=== PATIENT | male | born 1965 | race Asian ===

== ENCOUNTER 2017-10-26 03:31 | Emergency (ER) | payer MEDICAID ==
[~2017-10-26] VITALS: Ht 170.2 cm; Wt 63.5 kg
--- NOTE | 2017-10-26 03:34 | NUR ---
Patient to ER bed 6 to gown for evaluation. Side rails up. Report given to Noah MARIE.
[2017-10-26 03:38] VITALS: BP_SYST 155
--- NOTE | 2017-10-26 03:44 | NUR ---
PT SEEN IN BED 6, COMPLAINS OF LOCALIZED LEFT FOOT PAIN. 09/21, CLAIMS PAIN MAKES WALKING DIFFICULT, TENDER TO THE TOUCH. AREA OF REDNESS ON DORSAL FOOT JUST BEHIND TOES. DOES NOT FEEL HOT TO THE TOUCH.
--- NOTE | 2017-10-26 03:57 | NUR ---
RAJ MIGUEL at bedside examining patient.
[2017-10-26] MEDS ORDERED: IBUPROFEN 800 MG TABLET PO ONE (04:00)
[2017-10-26 04:14] VITALS: BP_SYST 155
--- NOTE | 2017-10-26 04:14 | NUR ---
Patient given written and verbal discharge instructions and verbalizes understanding. ER MD DR. MIGUEL discussed with patient the results and treatment provided. Patient in stable condition. ID arm band removed. Rx of NAPROXEN, BACTRIM DS given. Patient educated on pain management and to follow up with PMD. Pain Scale 4/10. Opportunity for questions provided and answered. Medication side effect fact sheet provided.
[2017-10-26] MEDS ORDERED: SULFAMETHOXAZOLE/TRIMETHOPR DS 1 TABLET PO ONE (04:15)
== END 2017-10-26 04:14 | disposition home or self-care (01) ==
LOC: SED 03:31
DX: L03.116 Cellulitis of left lower limb (principal)
CPT/HCPCS: 99284

== ENCOUNTER 2017-12-09 19:15 | Emergency (ER) | payer MEDICAID ==
[~2017-12-09] VITALS: Ht 167.6 cm; Wt 63.5 kg
[2017-12-09 19:25] VITALS: BP_SYST 135
[2017-12-09] MEDS ORDERED: ONDANSETRON HCL 4 MG/2 ML VIAL IVP ONE (20:00)
[2017-12-09] MEDS ORDERED: NACL 0.9% 1,000 ML IV ONE (20:00)
[2017-12-09 20:36] LABS: BASOPHILS % (AUTO) 0.2 % (0.0-2.0); EOSINOPHILS % (AUTO) 0.1 % (0.0-4.0); HEMOGLOBIN 17.2 g/dL (14.0-18.0); LYMPHOCYTES # (AUTO) 0.3 K/uL (1.0-5.5); LYMPHOCYTES % (AUTO) 2.6 % (20.5-51.5); MEAN CORPUSCULAR HEMOGLOBIN 31 pg (27-31); MEAN CORPUSCULAR HGB CONC 34 % (32-36); MEAN CORPUSCULAR VOLUME 92 fL (79.0-98.0); MONOCYTES # (AUTO) 0.7 K/uL (0.0-1.0); NEUTROPHILS # (AUTO) 12.3 K/uL (1.8-7.7); NEUTROPHILS % (AUTO) 92.1 % (40.0-70.0); PLATELET COUNT (AUTO) 228 K/uL (130-430); RED BLOOD CELL COUNT(AUTO) 5.56 MIL/uL (4.2-6.2); RED CELL DISTRIBUTION WIDTH 11.7 % (9.0-15.0); WHITE BLOOD COUNT (AUTO) 13.3 K/uL (4.8-10.8)
[2017-12-09 20:52] LABS: CALCIUM 10.5 mg/dL (8.4-11.0); CREATININE 1.09 mg/dL (0.55-1.30); POTASSIUM 3.6 mmol/L (3.5-5.1)
[2017-12-09 20:57] LABS: TOTAL BILIRUBIN 1.1 mg/dL (0.0-1.0)
[2017-12-09 21:53] VITALS: BP_SYST 127
== END 2017-12-09 21:53 | disposition home or self-care (01) ==
LOC: SED 19:15
DX: T62.8X1A Toxic effect of other specified noxious substances eaten as food, accidental (unintentional), initial encounter (principal); R11.2 Nausea with vomiting, unspecified; R19.7 Diarrhea, unspecified; Y92.89 Other specified places as the place of occurrence of the external cause
CPT/HCPCS: 36415; 80053; 85025; 96361; 96374; 99284; J2405; J7030

== ENCOUNTER 2017-12-11 21:48 | Emergency (ER) | payer MEDICAID ==
[~2017-12-11] VITALS: Ht 167.6 cm; Wt 63.5 kg
[2017-12-11 21:59] VITALS: BP_SYST 144
[2017-12-11] MEDS ORDERED: CEPHALEXIN 500 MG CAPSULE PO ONE (22:45)
[2017-12-11 23:08] VITALS: BP_SYST 133
== END 2017-12-11 23:07 | disposition home or self-care (01) ==
LOC: SED 21:48
DX: L03.116 Cellulitis of left lower limb (principal); R03.0 Elevated blood-pressure reading, without diagnosis of hypertension
CPT/HCPCS: 99283

== ENCOUNTER 2018-03-15 02:30 | Emergency (ER) | payer MEDICAID ==
[~2018-03-15] VITALS: Ht 170.2 cm; Wt 70.3 kg
[2018-03-15 02:45] VITALS: BP_SYST 138
--- NOTE | 2018-03-15 02:45 | NUR ---
Pt placed to ER bedj 07. Pt c/o cough, congestion, runny nose, sore throat, fever and chills x 5 days.
--- NOTE | 2018-03-15 03:10 | NUR ---
Dr. Barclay at bedside.
[2018-03-15 03:20] VITALS: BP_SYST 128
--- NOTE | 2018-03-15 03:20 | NUR ---
Patient given written and verbal discharge instructions and verbalizes understanding. ER MD discussed with patient the results and treatment provided. Patient in stable condition. ID arm band removed. Rx of Prednisone, Motrin, Azithromycin given. Patient educated on pain management and to follow up with PMD. Pain Scale 3/10. Opportunity for questions provided and answered. Medication side effect fact sheet provided.
== END 2018-03-15 03:20 | disposition home or self-care (01) ==
LOC: SED 02:30
DX: J02.9 Acute pharyngitis, unspecified (principal); R05 Cough; R03.0 Elevated blood-pressure reading, without diagnosis of hypertension
CPT/HCPCS: 99283

== ENCOUNTER 2018-03-25 22:12 | Emergency (ER) | payer MEDICAID ==
[~2018-03-25] VITALS: Ht 170.2 cm; Wt 68.0 kg
[2018-03-25 22:19] VITALS: BP_SYST 144
--- NOTE | 2018-03-25 22:22 | NUR ---
Patient triaged and placed in waiting room. VSS and patient appears in no acute distress at this time. Accompanied by SELF, awaiting available bed, and MD notified of need for MSE.
--- NOTE | 2018-03-26 00:53 | NUR ---
Pt c/o cough, runny nose, itchy throat x 5 days. One episode of diarrhea yesterday. Denies N/V, no fever or chills.
--- NOTE | 2018-03-26 00:53 | NUR ---
Patient to ER bed 3 to gown for evaluation. Side rails up. Report given to CYNTHIA Serna.
--- NOTE | 2018-03-26 01:12 | NUR ---
Speciment collected from Left nares for flu.
--- NOTE | 2018-03-26 01:27 | NUR ---
ER Dr. Sheffield at bedside examining patient.
[2018-03-26] MEDS ORDERED: AZITHROMYCIN 250 MG TABLET PO ONE (02:15)
[2018-03-26 02:20] VITALS: BP_SYST 135
--- NOTE | 2018-03-26 02:20 | NUR ---
Patient given written and verbal discharge instructions and verbalizes understanding. ER MD discussed with patient the results and treatment provided. Patient in stable condition. ID arm band removed. Rx of Zithromax given. Patient educated on pain management and to follow up with PMD. Pain Scale 0/10. Opportunity for questions provided and answered. Medication side effect fact sheet provided.
== END 2018-03-26 02:20 | disposition home or self-care (01) ==
LOC: SED 22:12
DX: J20.9 Acute bronchitis, unspecified (principal); R03.0 Elevated blood-pressure reading, without diagnosis of hypertension
CPT/HCPCS: 36415; 71045; 86710; 99284; Q0144

== ENCOUNTER 2019-11-09 00:10 | Emergency (ER) | payer MEDICAID ==
[~2019-11-09] VITALS: Ht 167.6 cm; Wt 68.0 kg
[2019-11-09 00:15] VITALS: BP_SYST 129
[2019-11-09] MEDS ORDERED: DIPH-TET-PERTUS Vaccine 0.5 ML VIAL (ADACEL) I.M. ONE (00:45)
[2019-11-09] MEDS ORDERED: SULFAMETHOXAZOLE/TRIMETHOPR DS 1 TABLET PO ONE (00:45)
[2019-11-09] MEDS ORDERED: BACITRACIN 1 GM OINT TP ONE ×2 (01:00→01:14)
[2019-11-09 01:16] VITALS: BP_SYST 123
== END 2019-11-09 01:15 | disposition home or self-care (01) ==
LOC: SED 00:10
DX: S81.812D Laceration without foreign body, left lower leg, subsequent encounter (principal); L08.9 Local infection of the skin and subcutaneous tissue, unspecified; W45.8XXD Other foreign body or object entering through skin, subsequent encounter
CPT/HCPCS: 90715; 99283

== ENCOUNTER 2020-08-04 04:12 | Emergency (ER) | payer MEDICAID, SELFPAY ==
[~2020-08-04] VITALS: Ht 167.6 cm; Wt 68.0 kg
[2020-08-04 04:12] VITALS: BP_SYST 152
[2020-08-04 05:43] LABS: BILIRUBIN,URINE NEGATIVE (NEGATIVE); CLARITY/URINE CLEAR (CLEAR); COLOR,URINE YELLOW (YELLOW); GLUCOSE,URINE NEGATIVE (NEGATIVE); KETONES,URINE NEGATIVE (NEGATIVE); LEUKOCYTE ESTERASE ,URINE NEGATIVE (NEGATIVE); NITRITE, URINE NEGATIVE (NEGATIVE); PROTEIN URINE NEGATIVE (NEGATIVE); UROBILINOGEN,URINE 0.2 (0.2-1.0)
[2020-08-04 05:45] LABS: BLOOD, URINE TRACE (NEGATIVE)
[2020-08-04 05:46] LABS: BACTERIA,URINE RARE /HPF (None Seen); RBC,URINE 0-3 /HPF (0-3); WBC,URINE 0-3 /HPF (0-3)
[2020-08-04 06:25] LABS: BASOPHILS # (AUTO) 0.1 K/uL (0.0-0.2); BASOPHILS % (AUTO) 0.9 % (0.0-2.0); EOSINOPHILS % (AUTO) 0.3 % (0.0-4.0); HEMOGLOBIN 15.3 g/dL (14.0-18.0); LYMPHOCYTES # (AUTO) 0.4 K/uL (1.0-5.5); LYMPHOCYTES % (AUTO) 6.1 % (20.5-51.5); MEAN CORPUSCULAR HEMOGLOBIN 32 pg (27-31); MEAN CORPUSCULAR HGB CONC 35 % (32-36); MEAN CORPUSCULAR VOLUME 93 fL (79.0-98.0); MONOCYTES # (AUTO) 0.4 K/uL (0.0-1.0); MONOCYTES % (AUTO) 6.4 % (1.7-9.3); NEUTROPHILS # (AUTO) 5.7 K/uL (1.8-7.7); NEUTROPHILS % (AUTO) 86.3 % (40.0-70.0); PLATELET COUNT (AUTO) 189 K/uL (130-430); RED BLOOD CELL COUNT(AUTO) 4.76 MIL/uL (4.2-6.2); WHITE BLOOD COUNT (AUTO) 6.7 K/uL (4.8-10.8)
[2020-08-04 06:39] LABS: CALCIUM 8.9 mg/dL (8.4-11.0); CREATININE 1.02 mg/dL (0.55-1.30); POTASSIUM 3.8 mmol/L (3.5-5.1)
[2020-08-04 06:48] LABS: C-REACTIVE PROTEIN QUANT 0.6 mg/dL (0-0.5)
[2020-08-04 06:52] LABS: TOTAL BILIRUBIN 0.6 mg/dL (0.0-1.0)
[2020-08-04] MEDS ORDERED: IBUP-1971 PO (07:24)
[2020-08-04 07:29] VITALS: BP_SYST 131
== END 2020-08-04 07:30 | disposition home or self-care (01) ==
LOC: SED 04:12
DX: R50.83 Postvaccination fever (principal); Z20.822 Contact with and (suspected) exposure to COVID-19
CPT/HCPCS: 36415; 71045; 80053; 81000; 83605; 85025; 86140; 99284

== ENCOUNTER 2021-06-07 23:01 | Emergency (ER) | payer MEDICAID, SELFPAY ==
[~2021-06-07] VITALS: Ht 167.6 cm; Wt 68.0 kg
[~2021-06-07 23:01] MED LIST: IBUP-1971 PO
[2021-06-07 23:10] VITALS: BP_SYST 164
--- NOTE | 2021-06-07 23:10 | NUR ---
Patient to ER bed 7 to gown for evaluation. Side rails up. Report given to Carol MARIE(reg).
--- NOTE | 2021-06-07 23:15 | NUR ---
Pt brought self in from home due to swelling and redness to top of L foot/2nd digit which has gotten worse over night. Pt states it hurts to walk now. Skin is intact. 4/10 pain at this time. No acute signs of distress.
--- NOTE | 2021-06-07 23:21 | NUR ---
ER at bedside examining patient.
[2021-06-07] MEDS ORDERED: IBUPROFEN 600 MG TABLET PO ONE (23:30)
[2021-06-07] MEDS ORDERED: cephALEXin 500 MG CAPSULE PO ONE (23:30)
[2021-06-07] MEDS ORDERED: CEPH250C PO (23:32)
[2021-06-07] MEDS ORDERED: IBUP-1969 PO (23:32)
--- NOTE | 2021-06-07 23:45 | NUR ---
Patient given written and verbal discharge instructions and verbalizes understanding. ER MD Presley discussed with patient the results and treatment provided. Patient in stable condition. ID arm band removed. Rx of Motrin and Keflex sent to pharmacy of choice. Patient educated on pain management and diagnosis. Opportunity for questions provided and answered. Medication side effect fact sheet provided.
[2021-06-07 23:55] VITALS: BP_SYST 148
[2021-06-08] MEDS ORDERED: ONDANSETRON 4 MG ODT TAB ONE (15:57)
== END 2021-06-07 23:45 | disposition home or self-care (01) ==
LOC: SED 23:01
DX: L03.116 Cellulitis of left lower limb (principal)
CPT/HCPCS: 99283; 99284; Q0162

== ENCOUNTER 2021-11-30 14:37 | Emergency (ER) | payer MEDICAID ==
[~2021-11-30] VITALS: Ht 170.2 cm; Wt 63.5 kg
[~2021-11-30 14:37] MED LIST changes: +CEPH250C PO; +IBUP-1969 PO
[2021-11-30 15:01] VITALS: BP_SYST 122
[2021-11-30 16:48] LABS: BASOPHILS % (AUTO) 0.1 % (0.0-2.0); MONOCYTES # (AUTO) 0.6 K/uL (0.0-1.0); NEUTROPHILS # (AUTO) 8.7 K/uL (1.8-7.7)
[2021-11-30 16:53] LABS: LYMPHOCYTES # (AUTO) 1.1 K/uL (1.0-5.5); LYMPHOCYTES % (AUTO) 10.5 % (20.5-51.5); MEAN CORPUSCULAR VOLUME 91 fL (79.0-98.0); MONOCYTES % (AUTO) 5.7 % (1.7-9.3); NEUTROPHILS % (AUTO) 83.7 % (40.0-70.0); PLATELET COUNT (AUTO) 304 K/uL (130-430); RED BLOOD CELL COUNT(AUTO) 5.92 MIL/uL (4.2-6.2); RED CELL DISTRIBUTION WIDTH 12.8 % (9.0-15.0); WHITE BLOOD COUNT (AUTO) 10.4 K/uL (4.8-10.8)
[2021-11-30 17:16] LABS: ANION GAP 15 (5-15); CALCIUM 11.8 mg/dL (8.4-11.0); CHLORIDE 98 mmol/L (98-107); CREATININE 2.34 mg/dL (0.55-1.30); GLUCOSE 163 mg/dL (70-99); SODIUM SERUM 135 mmol/L (136-145); UREA NITROGEN, BLOOD 32 mg/dL (8-21)
[2021-11-30 17:17] LABS: GFR AFRICAN AMERICAN 37 mL/min (>90)
[2021-11-30 17:28] LABS: ALANINE AMINOTRANSFERASE 31 U/L (12-78); ALBUMIN 5.7 g/dL (3.4-4.8); AMYLASE 62 U/L (0-100); ASPARTATE AMINOTRANSFERASE 21 U/L (10-37); LIPASE 77 U/L (73-393); TOTAL BILIRUBIN 1.4 mg/dL (0.0-1.0)
[2021-11-30 17:30] LABS: C-REACTIVE PROTEIN QUANT < 0.2 mg/dL (0-0.5)
--- NOTE | 2021-11-30 17:45 | NUR ---
Placed in tent. Placed on environmental monitoring technician, blood pressure machine and pulse oximeter. To gown for exam. Side rails up.
--- NOTE | 2021-11-30 17:49 | NUR ---
RAJ Sexton at bedside examining patient. Addendum: 11/30/21 at 1913 by [email or web address] RAJ Mon at bedside examining patient.
[2021-11-30 17:53] LABS: BILIRUBIN,URINE 1+ (NEGATIVE); BLOOD, URINE 3+ (NEGATIVE); GLUCOSE,URINE NEGATIVE (NEGATIVE); KETONES,URINE 1+ (NEGATIVE); LEUKOCYTE ESTERASE ,URINE NEGATIVE (NEGATIVE); NITRITE, URINE NEGATIVE (NEGATIVE); PH,URINE 5.5 (5.0-8.0); PROTEIN URINE 3+ (NEGATIVE)
--- NOTE | 2021-11-30 17:55 | NUR ---
Assumed care of pt who came from home c/o cough. Pt was given covid test when triaged in tent and result was negative. Pt speaks Mandarin and denied any hx of medical conditions. Denies surgery, use of alcohol and tobacco. Denies f/v/n/d. Pt states cough started approx 6 days ago and has continued to worsen each day. States cough is productive at times. Will provide care as ordered.
[2021-11-30 18:01] LABS: CLARITY/URINE HAZY (CLEAR); COLOR,URINE AMBER (YELLOW)
[2021-11-30 18:02] LABS: BACTERIA,URINE FEW /HPF (None Seen); CALCIUM OXALATE CRYSTALS,UR 0-10 /HPF (None Seen); WBC,URINE 0-3 /HPF (0-3)
[2021-11-30 18:03] LABS: HYALINE CASTS, URINE 0-10 /LPF (None Seen); MUCUS,URINE None Seen /LPF (None Seen)
[2021-11-30] MEDS ORDERED: NACL 0.9% 2,000 ML IV ONE (19:00)
--- NOTE | 2021-11-30 19:25 | NUR ---
Patient is resting in bed. IVF infusing. VSS. Will continue to monitor.
[2021-11-30 20:50] VITALS: BP_SYST 133
--- NOTE | 2021-11-30 20:50 | NUR ---
Patient given written and verbal discharge instructions and verbalizes understanding. ER MD BANG discussed with patient the results and treatment provided. Patient in stable condition. ID arm band removed. IV catheter removed intact and dressing applied, no active bleeding. Patient educated on pain management and to follow up with PMD. Pain Scale 0/10. Opportunity for questions provided and answered. Medication side effect fact sheet provided.
== END 2021-11-30 20:50 | disposition home or self-care (01) ==
LOC: SED 14:37
DX: E86.0 Dehydration (principal); R19.7 Diarrhea, unspecified; R05.9 Cough, unspecified; Z79.899 Other long term (current) drug therapy; Z20.822 Contact with and (suspected) exposure to COVID-19
CPT/HCPCS: 99283; 96360; 87426; 80053; 81000; 82150; 83690; 85025; 86140; 36415; 83605; J7030